=== PATIENT | male | born 1960 | race Caucasian/White ===

== ENCOUNTER 2024-10-17 12:34 | Day surgery (SDC) | payer OTHER ==
[~2024-10-17] VITALS: Ht 177.8 cm; Wt 87.4 kg
[2024-10-17] MEDS ORDERED: Lactated Ringer's 1,000 ML IV SCH (12:50)
[2024-10-17 13:01] VITALS: BP 166/90
--- NOTE | 2024-10-17 13:22 | NUR ---
Ambulatory in Day Surgery WITH STEADY GAIT. History, Chart, Medications and Allergies reviewed before start of procedure. Pre-Op teaching done. Pt verbalizes understanding. Patient States Post-Procedure ride home has been arranged WITH FRIEND LILIANA. DENTURES REMOVED AND PLACED IN PT BELONGING BAG WITH CLOTHES AND SHOES UNDER GURN. PT UPDATED ON POSSIBLE DELAY IN ROOM DUE TO PREVIOUS CASES RUNNING LONG. PT DENIES ANY NEEDS AT THIS TIME. CALL LIGHT IN REACH. SMALL RED AREA WITH SMALL ABRASIONS NOTED ON LOWER RIGHT ABD AFTER CLIPPERS USED.
--- NOTE | 2024-10-17 14:46 | NUR ---
PT UPDATED ON DELAY IN ROOM. PT REQUESTED TO CALL RIDE HOME. PT GIVEN HOSPITAL PHONE TO MAKE PHONE CALL. NO OTHER NEEDS EXPRESSED AT THIS TIME. CALL LIGHT REMAINS IN REACH. BED IN LOWEST LOCKED POSITION.
[2024-10-17] MEDS ORDERED: Bupivacaine 0.5% HCl 5 MG/ML 30MLVIAL ONE (15:22)
[2024-10-17] MEDS ORDERED: FentaNYL Citrate 50 MCG/ML 2 ML Injection ONE (15:26)
[2024-10-17] MEDS ORDERED: propofoL 20 ML IV ONE (15:26)
[2024-10-17] MEDS ORDERED: Rocuronium Bromide 10 MG/ML 5ML Injection IV ONE ×2 (15:26)
[2024-10-17] MEDS ORDERED: Lidocaine HCl 2% 20 ML MDV ONE (15:27)
[2024-10-17] MEDS ORDERED: Sugammadex Sodium 200 MG/2ML SDV (100 MG/ML) ONE (16:27)
[2024-10-17] MEDS ORDERED: FentaNYL Citrate 50 MCG/ML 2 ML Injection IV PRN (16:30)
[2024-10-17] MEDS ORDERED: Prochlorperazine Edisylate 10 mg Vial IV PRN (16:30)
[2024-10-17] MEDS ORDERED: Ondansetron HCl 2 MG / ML 2ML Vial IV PRN (16:30)
[2024-10-17] MEDS ORDERED: Labetalol HCL 5 MG/ML 4ML Injection (Single Dose) IV PRN (16:30)
[2024-10-17] MEDS ORDERED: HYDROmorphone HCl/Pf 1MG SYR IV PRN (16:35)
[2024-10-17] MEDS ORDERED: ePHEDrine Sulfate 50 MG/ML 1ML Injection ONE (16:45)
[2024-10-17 16:50] VITALS: BP 158/83
[2024-10-17 16:55] VITALS: BP 146/79
[2024-10-17 17:00] VITALS: BP 147/81
[2024-10-17 17:17] VITALS: BP 135/77
== END 2024-10-17 23:03 | disposition home or self-care (01) ==
LOC: ORSCMMR 12:34 → ORD 14:00 → ORSCMMR 14:00
PROVIDERS: Surgery
PROC: 0YU64JZ Supplement Left Inguinal Region with Synthetic Substitute, Percutaneous Endoscopic Approach (ICD-10-PCS; principal; 2024-10-17 14:00)
PROC: 8E0W4CZ Robotic Assisted Procedure of Trunk Region, Percutaneous Endoscopic Approach (ICD-10-PCS; principal; 2024-10-17 14:00)
DX: K40.91 Unilateral inguinal hernia, without obstruction or gangrene, recurrent (principal)
CPT/HCPCS: C1781; J2704; J3010; J7120